=== PATIENT | female | born 1975 | race Hispanic/Latino ===

== ENCOUNTER 2018-03-14 04:05 | Emergency (ER) | payer OTHER ==
[~2018-03-14] VITALS: Ht 160 cm; Wt 88.5 kg
--- OUTSIDE RECORDS SUMMARY | 2018-03-14 04:09 | XMS REPORT | Continuity of Care Document ---
Author Author [facility] Interface Address Unknown Phone Unavailable Problems Problem Status Onset Date Classification Date Reported Comments Source Localized swelling, mass and lump, head 03/13/2017 06/15/2017 [facility] SWELLING OF HEAD Active 02/19/2017 [facility] Diabetes Active Problem 06/15/2017 [facility] Body mass index 40.0-44.9, adult(<span ID="[id number]">Confirmed</span>) Active Problem 06/15/2017 [facility] Hyperlipidemia Active Problem 06/15/2017 [facility] Hypothyroid Active Problem 06/15/2017 [facility] Migraine Active Problem 06/15/2017 [facility] Gestational HTN Resolved Problem 06/15/2017 [facility] Medications Medication Details Route Status Patient Instructions Ordering Provider Order Date Source atorvastatin 10 mg oral tablet 10 mg=1 tab, PO, Bedtime, # 90 tab, 1 Refill(s), Pharmacy: [facility] [id number] Active 02/27/2017 [facility] metFORMIN 500 mg oral tablet, extended release 500 mg=1 tab, PO, Dinner, # 30 tab, 5 Refill(s), Pharmacy: [facility] [id number] Active 02/27/2017 [facility] levothyroxine 75 mcg (0.075 mg) oral tablet 75 microgram=1 tab, PO, Daily, # 90 tab, 1 Refill(s), Pharmacy: [facility] [id number] Active 02/27/2017 [facility] Acetaminophen 300 MG / butalbital 50 MG / Caffeine 40 MG Oral Capsule [Fioricet] 1 cap, PO, Q4H, PRN PRN Headache, Do not exceed 6 capsules in 24 hours, X 10 day, # 60 cap, 1 Refill(s), Pharmacy: [facility] [id number] No Longer Active 02/20/2017 [facility] SUMAtriptan 50 mg oral tablet 50 mg=1 tab, PO, ONCE, PRN Headache, # 9 tab, 2 Refill(s), Pharmacy: [facility] [id number] Active 02/16/2017 [facility] levothyroxine 50 mcg (0.05 mg) oral tablet 50 microgram=1 tab, PO, Daily, # 30 tab, 0 Refill(s) No Longer Active 02/16/2017 [facility] Thyroxine See Instructions, Daily, 0 Refill(s) Inactive 02/16/2017 [facility] Allergies, Adverse Reactions, Alerts Substance Category Reaction Severity Reaction type Status Date Reported Comments Source Immunizations Immunization Date Given Site Status Last Updated Comments Source Results Order Name Results Value Reference Range Date Interpretation Comments Source Soft Tissue Head/Neck US Soft Tissue Head/Neck US Soft Tissue Head/Neck US CLINICAL HISTORY:lump like area on the back of the head. - swelling of head. COMPARISON: None TECHNIQUE: Sagittal and transverse images of the soft tissues of the occiput were performed with a linear high-frequency transducer. Static images are submitted for review. FINDINGS: No discrete fluid collection is noted in the region of the soft tissues in the occiput. No gross masses are evident. If there remains persistent clinical concern, further evaluation may be obtained with CT scan of the head IMPRESSION: No discrete fluid collection is visualized in the region of the soft tissues of the occiput. SL: [id number] 03/09/2017 - - Read by: Satnam Roberts MD Dictated Date/time: 03/09/17 15:35 Electronically Signed by: Satnam Roberts MD 03/09/17 15:37 FINAL REPORT [facility] Vital Signs Vital Sign Value Date Comments Source Weight 103.636 02/27/2017 [facility] BMI Calculated 40.47 02/27/2017 [facility] Temperature Oral (F) 98.4 F 02/27/2017 [facility] Respitory Rate 14 02/27/2017 [facility] Heart Rate 76 02/27/2017 [facility] Systolic (mm Hg) 129 02/27/2017 [facility] Diastolic (mm Hg) 84 02/27/2017 [facility] Height 160.02 cm 02/27/2017 [facility] BMI Calculated 41.18 02/18/2017 [facility] Weight 105.455 02/18/2017 [facility] Height 160.02 cm 02/18/2017 [facility] Heart Rate 62 02/18/2017 [facility] Temperature Oral (F) 98.0 F 02/18/2017 [facility] Respitory Rate 14 02/18/2017 [facility] Systolic (mm Hg) 131 02/18/2017 [facility] Diastolic (mm Hg) 85 02/18/2017 [facility] Systolic (mm Hg) 127 02/16/2017 [facility] Diastolic (mm Hg) 86 02/16/2017 [facility] Weight 104.091 02/16/2017 [facility] Height 160.02 cm 02/16/2017 [facility] BMI Calculated 40.65 02/16/2017 [facility] Systolic (mm Hg) 154 02/16/2017 [facility] Diastolic (mm Hg) 103 02/16/2017 [facility] Respitory Rate 14 02/16/2017 [facility] Temperature Oral (F) 98.0 F 02/16/2017 [facility] Heart Rate 62 02/16/2017 [facility] Encounters Location Location Details Encounter Type Encounter Number Reason For Visit Attending Provider ADM Date DC Date Status Source Outpatient [id number] SYMONE CARBAJAL 02/16/2017 [facility] Outpatient [id number] Symone Carbajal 02/16/2017 02/17/2017 [facility] Outpatient [id number] SYMONE CARBAJAL 02/18/2017 [facility] Outpatient [id number] Symone Carbajal 02/18/2017 02/19/2017 [facility] Phone Message [id number] 02/20/2017 02/22/2017 [facility] Outpatient [id number] SYMONE CARBAJAL 02/27/2017 [facility] Outpatient [id number] Symone Carbajal 02/27/2017 02/28/2017 [facility] Outpatient [id number] Symone Carbajal 03/09/2017 03/10/2017 [facility] Outpatient [id number] SYMONE CARBAJAL 05/28/2017 [facility] Ambulatory Pre-Reg [id number] Symone Carbajal 05/28/2017 05/28/2017 [facility] Outpatient [id number] SYMONE CARBAJAL 09/03/2017 Active [facility] Procedures Procedure Code Date Perfomer Comments Source Hysterectomy [id number] 01/10/2016 [facility] Hysterectomy [id number] 01/10/2016 [id number] Cervical cytology screening [id number] [facility] Cholecystectomy [id number] [facility] Tubal ligation [id number] [facility] Caesarean section [id number] [facility] Cervical cytology screening [id number] [facility] Cholecystectomy [id number] [facility] Tubal ligation [id number] [facility]
--- OUTSIDE RECORDS SUMMARY | 2018-03-14 04:09 | XMS REPORT | Summary of Care ---
Author Author [facility] Organization [facility] Address Unknown Phone Unavailable Encounter HQ Encntr_alias(FIN) [id number] Date(s): 05/28/17 - 05/28/17 [facility] [address] [place] [address], [address] [place] [address]- [phone] Attending Physician: Jennifer Chan DO Vital Signs No data available for this section Problem List Condition Effective Dates Status Health Status Informant Diabetes(Confirmed) Active Body mass index Active (BMI) 40.0-44.9, adult(Confirmed) Hyperlipidemia(Confi Active rmed) Hypothyroid(Confirme Active d) Migraine(Confirmed) Active Gestational Resolved HTN(Confirmed) Allergies, Adverse Reactions, Alerts Substance Reaction Severity Status NKDA Active Medications No data available for this section Results No data available for this section Immunizations No data available for this section Procedures Procedure Date Related Diagnosis Body Site Status Hysterectomy 01/2016 Completed Caesarean section Completed Cervical cytology screening Completed Cholecystectomy Completed Tubal ligation Completed Social History Social History Type Response Exercise Exercise duration: 0. Employment/School Status: Employed. 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 Alcohol Never Smoking Status Never smoker; Exposure to Tobacco Smoke None; Cigarette Smoking Last 365 Days No; Reg Smoking Cessation Counseling No entered on: 02/27/17 Assessment and Plan No data available for this section
--- OUTSIDE RECORDS SUMMARY | 2018-03-14 04:09 | XMS REPORT | Summary of Care ---
Author Author [facility] Organization [facility] Address Unknown Phone Unavailable Encounter PAUL Patricio(FIN) [id number] Date(s): 02/18/17 - 02/18/17 [facility] [address] [place] [address], [address] [place] [address]- [phone] Discharge Disposition: Home or Self Care Attending Physician: Jennifer Chan DO Vital Signs Most recent to 1 oldest [Reference Range]: Height 160.02 cm (02/18/17 11:46 AM) Temperature Oral 98.0 DegF [96.4-99.1 DegF] (02/18/17 11:46 AM) Blood Pressure 131/85 mmHg [90-140/60-90 mmHg] (02/18/17 11:46 AM) Respiratory Rate 14 BRMIN [14-20 BRMIN] (02/18/17 11:46 AM) Peripheral Pulse 62 bpm Rate [60-100 bpm] (02/18/17 11:46 AM) Weight 105.455 kg (02/18/17 11:46 AM) Body Mass Index 41.18 m2 (02/18/17 11:46 AM) Problem List Condition Effective Dates Status Health Status Informant Diabetes(Confirmed) Active Body mass index Active (BMI) 40.0-44.9, adult(Confirmed) Hyperlipidemia(Confi Active rmed) Hypothyroid(Confirme Active d) Migraine(Confirmed) Active Gestational Resolved HTN(Confirmed) Allergies, Adverse Reactions, Alerts Substance Reaction Severity Status NKDA Active Medications No Known Medications Results No data available for this section Immunizations No data available for this section Procedures Procedure Date Related Diagnosis Body Site Status Hysterectomy 01/2016 Completed Caesarean section Completed Cervical cytology screening Completed Cholecystectomy Completed Tubal ligation Completed Social History Social History Type Response Exercise Exercise duration: 0. Employment/School Status: Employed. 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 Alcohol Never Smoking Status Never smoker; Exposure to Tobacco Smoke None; Cigarette Smoking Last 365 Days No; Reg Smoking Cessation Counseling No entered on: 02/27/17 Assessment and Plan No data available for this section
--- OUTSIDE RECORDS SUMMARY | 2018-03-14 04:09 | XMS REPORT | Summary of Care ---
Author Author [facility] Organization [facility] Address Unknown Phone Unavailable Encounter HQ Sheng(FIN) [id number] Date(s): 02/16/17 - 02/16/17 [facility] [address] [place] [address], [address] [place] [address]- [phone] Discharge Disposition: Home or Self Care Attending Physician: Jennifer Chan DO Vital Signs Most recent to 1 2 oldest [Reference Range]: Height 160.02 cm (02/16/17 11:43 AM) Temperature Oral 98.0 DegF [96.4-99.1 DegF] (02/16/17 11:43 AM) Blood Pressure 127/86 mmHg 154/103 mmHg [90-140/60-90 mmHg] (02/16/17 1:07 PM) *HI* (02/16/17 11:43 AM) Respiratory Rate 14 BRMIN [14-20 BRMIN] (02/16/17 11:43 AM) Peripheral Pulse 62 bpm Rate [60-100 bpm] (02/16/17 11:43 AM) Weight 104.091 kg (02/16/17 11:43 AM) Body Mass Index 40.65 m2 (02/16/17 11:43 AM) Problem List Condition Effective Dates Status Health Status Informant Body mass index Active (BMI) 40.0-44.9, adult(Confirmed) Hyperlipidemia(Confi Active rmed) Hypothyroid(Confirme Active d) Migraine(Confirmed) Active Gestational Resolved HTN(Confirmed) Allergies, Adverse Reactions, Alerts Substance Reaction Severity Status NKDA Active Medications levothyroxine See Instructions, Daily, 0 Refill(s) Start Date: 02/16/17 Stop Date: 02/16/17 Status: Deleted levothyroxine 50 mcg (0.05 mg) oral tablet 50 microgram=1 tab, PO, Daily, # 30 tab, 0 Refill(s) Start Date: 02/16/17 Status: Ordered SUMAtriptan 50 mg oral tablet 50 mg=1 tab, PO, ONCE, PRN Headache, # 9 tab, 2 Refill(s), Pharmacy: [facility] [id number] Start Date: 02/16/17 Status: Ordered Results No data available for this section Immunizations No data available for this section Procedures Procedure Date Related Diagnosis Body Site Hysterectomy 01/2016 Caesarean section Cervical cytology screening Cholecystectomy Tubal ligation Social History Social History Type Response Exercise Exercise duration: 0. Employment/School Status: Employed. 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
--- OUTSIDE RECORDS SUMMARY | 2018-03-14 04:09 | XMS REPORT | Summary of Care ---
Author Author [facility] Organization [facility] Address Unknown Phone Unavailable Encounter HQ Aidentr_alideborah(FIN) [id number] Date(s): 02/20/17 - 02/21/17 [facility] [address], [address] [place] [address]- [phone] Vital Signs No data available for this section Problem List Condition Effective Dates Status Health Status Informant Body mass index Active (BMI) 40.0-44.9, adult(Confirmed) Hyperlipidemia(Confi Active rmed) Hypothyroid(Confirme Active d) Migraine(Confirmed) Active Gestational Resolved HTN(Confirmed) Allergies, Adverse Reactions, Alerts Substance Reaction Severity Status NKDA Active Medications Fioricet 300 mg-50 mg-40 mg oral capsule 1 cap, PO, Q4H, PRN PRN Headache, Do not exceed 6 capsules in 24 hours, X 10 day , # 60 cap, 1 Refill(s), Pharmacy: [facility] [id number] Start Date: 02/20/17 Stop Date: 03/12/17 Status: Ordered Results No data available for this section Immunizations No data available for this section Procedures Procedure Date Related Diagnosis Body Site Status Hysterectomy 01/2016 Completed Caesarean section Completed Cervical cytology screening Completed Cholecystectomy Completed Tubal ligation Completed Social History Social History Type Response Exercise Exercise duration: 0. Employment/School Status: Employed. 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 Alcohol Never Smoking Status Never smoker; Exposure to Tobacco Smoke None; Cigarette Smoking Last 365 Days No; Reg Smoking Cessation Counseling No entered on: 02/18/17 Assessment and Plan No data available for this section
--- OUTSIDE RECORDS SUMMARY | 2018-03-14 04:09 | XMS REPORT | Summary of Care ---
Author Author [facility] Organization [facility] Address Unknown Phone Unavailable Encounter HQ Brentr_alexander(FIN) [id number] Date(s): 02/18/17 - 02/18/17 [facility] [address], [address] [place] [address]- [phone] Discharge Disposition: Home or Self Care Attending [...] duration: 0. Employment/School Status: Employed. 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
--- OUTSIDE RECORDS SUMMARY | 2018-03-14 04:09 | XMS REPORT | Summary of Care ---
Author Author [facility] Organization [facility] Address Unknown Phone Unavailable Encounter HQ Brentr_alexander(FIN) [id number] Date(s): 02/20/17 - 02/21/17 [facility] [address], [address] [place] [address]- [phone] Vital Signs No data available for this [...] , # 60 cap, 1 Refill(s), Pharmacy: [facility] [id number] Start Date: 02/20/17 Stop Date: 03/12/17 Status: Completed Results No data available for this section Immunizations No data available for this section Procedures Procedure Date Related Diagnosis Body Site Status Hysterectomy 01/2016 Completed Caesarean section Completed Cervical cytology screening Completed Cholecystectomy Completed Tubal ligation Completed Social History Social History Type Response Exercise Exercise duration: 0. Employment/School Status: Employed. 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 Alcohol Never Smoking Status Never smoker; Exposure to Tobacco Smoke None; Cigarette Smoking Last 365 Days No; Reg Smoking Cessation Counseling No entered on: 02/27/17 Assessment and Plan No data available for this section
--- OUTSIDE RECORDS SUMMARY | 2018-03-14 04:11 | XMS REPORT | Summary of Care ---
Author Author [facility] Organization [facility] Address Unknown Phone Unavailable Encounter HQ Sheng(FIN) [id number] Date(s): 03/09/17 - 03/09/17 [facility] [address] [place] [address]- Encounter Diagnosis Localized swelling, mass and lump, head (Final) - 03/12/17 Discharge Disposition: Home or Self Care Attending Physician: Jennifer Chan DO Referring Physician: Jennifer Chan DO Vital Signs No [...] duration: 0. Employment/School Status: Employed. 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 Alcohol Never Smoking Status Never smoker; Exposure to Tobacco Smoke None; Cigarette Smoking Last 365 Days No; Reg Smoking Cessation Counseling No entered on: 02/27/17 Assessment and Plan No data available for this section
[2018-03-14 05:19] LABS: BASOPHILS # (AUTO) 0.1 (0.0-0.1); BASOPHILS % 0.4 % (0.0-1.0); EOSINOPHILS # (AUTO) 0.3 (0.0-0.4); EOSINOPHILS % 2.2 % (0.0-6.0); HEMOGLOBIN 13.1 g/dL (12.0-16.0); LYMPHOCYTES # (AUTO) 2.3 (1.0-3.2); LYMPHOCYTES % 18.7 % (18.0-39.1); MEAN CORPUSCULAR HEMOGLOBIN 31.2 pg (28-32); MEAN CORPUSCULAR HGB CONC 35.4 g/dL (31-35); MEAN CORPUSCULAR VOLUME 88.1 fL (81-99); MONOCYTES # (AUTO) 0.9 (0.2-0.8); MONOCYTES % 7.1 % (4.4-11.3); NEUTROPHILS # (AUTO) 8.6 (2.1-6.9); NEUTROPHILS % 70.7 % (38.7-80.0); PLATELET COUNT 213 x10e3/uL (140-360); RED CELL DISTRIBUTION WIDTH 13.7 % (11.7-14.4)
--- NOTE | 2018-03-14 05:20 | Diagnostic Imaging Report ---
CHEST 2 VIEWS, Technique: CHEST 2 VIEWS Comparison: None Clinical history: Chest pain DISCUSSION: Cardiomediastinal silhouette is within normal limits. No consolidation or edema. No effusion or pneumothorax.. IMPRESSION: No acute abnormality Signed by: Dr Noemy Harrison MD on 03/14/2018 5:17 AM
[2018-03-14 05:53] LABS: ALANINE AMINOTRANSFERASE 22 IU/L (0-55); ALBUMIN 3.6 g/dL (3.5-5.0); ALBUMIN/GLOBULIN RATIO 1.3 (0.8-2.0); ALKALINE PHOSPHATASE 73 IU/L (40-150); ANION GAP 13.5 mmol/L (8-16); BLOOD UREA NITROGEN 12 mg/dL (7-26); BUN/CREATININE RATIO 15 (6-25); CALCIUM 8.7 mg/dL (8.4-10.2); CARBON DIOXIDE 22 mmol/L (22-29); CHLORIDE 108 mmol/L (98-107); CREATINE KINASE 68 IU/L (29-168); EST GLOMERULAR FILTRATION RATE > 60 ML/MIN (60-); GLUCOSE 134 mg/dL (74-118); POTASSIUM 3.5 mmol/L (3.5-5.1); SODIUM 140 mmol/L (136-145)
[2018-03-14 06:29] VITALS: BP 127/82
== END 2018-03-14 06:49 | disposition home or self-care (01) ==
LOC: ER 04:05
DX: M25.512 Pain in left shoulder (principal); M75.52 Bursitis of left shoulder; E03.9 Hypothyroidism, unspecified; F17.210 Nicotine dependence, cigarettes, uncomplicated
CPT/HCPCS: 36415; 71046; 80053; 82550; 82553; 84484; 85025; 93005; 99284